=== PATIENT | female | born 1960 | race Caucasian/White ===

== ENCOUNTER 2016-10-15 06:43 | Inpatient (IN) | payer OTHER ==
[~2016-10-15] VITALS: Ht 170.2 cm; Wt 87.0 kg
[~2016-10-15 06:43] MED LIST: AMBIEN CR12.5 MG PO; AMLACTIN140 GM TP; BRILINTA60 MG PO; CALCIUM 500 +1 EAC5 PO; CALCIUM 600 +1 EA12 PO; COLACE100 MG PO; CYANOCOBALAM1000 MCG PO; CYMBALTA60 MG PO; DICLOFENAC SODI75 MG PO; FISH OIL 1,2001 EAC4 PO; FLEXERIL10 MG PO; FOLIC ACID1 MG PO; HYDROXYZINE HCL25 MG PO; IRON325 M1 PO; IRON325 MG PO; ISOSORBIDE MONO30 MG PO; KLONOPIN1 MG PO; LEXAPRO20 MG PO; LIPITOR40 MG PO; LO-DOSE ASPIRIN81 M1 PO; LO-DOSE ASPIRIN81 M2 PO; LYRICA50 MG PO; MELATONIN10 M1 PO; METHOTREXATE2.5 MG PO; METOPROLOL SUCC50 MG PO; MORPHINE SULFAT15 M1 PO; MORPHINE SULFAT15 MG PO; NAPROXEN500 MG PO; NASONEX17 GM NS; NITROSTAT0.4 MG SL; OXYCODONE HCL10 MG PO; OXYCODONE HCL5 MG PO; OXYCONTIN40 MG PO; PRILOSEC OTC20 MG PO; PROAIR RESPICL90 MCG IH; REQUIP2 MG PO; REQUIP3 MG PO; REQUIP4 MG PO; ROBAXIN750 MG PO; SINUS RELIEF15 ML BOTH NARES; TIZANIDINE HCL4 M1 PO; TYLENOL EXTRA500 MG PO; VOLTAREN 1% GE100 GM TP; WELLBUTRIN SR150 MG PO; XANAX2 MG PO; XARELTO10 MG PO; XYZAL5 MG PO; ZANTAC150 MG PO
[2016-10-15 07:44] VITALS: BP 114/67
[2016-10-15 16:23] VITALS: BP 149/101
[2016-10-15 19:46] VITALS: BP 157/91
[2016-10-15 23:36] VITALS: BP 124/73
[2016-10-16 04:42] VITALS: BP 128/62
[2016-10-16 05:57] LABS: ANION GAP 6 MEQ/L (2-14); CHLORIDE 102 MEQ/L (99-109); GFR ESTIMATE (CALCULATED) > 59 mL/min/; GLUCOSE 123 mg/dL (70-99); POTASSIUM 4.4 MEQ/L (3.7-5.4); SAMPLE HEMOLYSIS CHECK 0; SAMPLE ICTERIC CHECK 0; SAMPLE LIPEMIA CHECK 0; SODIUM 139 MEQ/L (136-147); UREA NITROGEN (BUN) 6 mg/dL (9-23)
[2016-10-16 06:29] LABS: HEMATOCRIT 32.1 % (36.0-46.0); MCV 97.6 FL (83-99)
[2016-10-16 10:27] VITALS: BP 149/72
[2016-10-16 16:38] VITALS: BP 140/85
[2016-10-17 00:01] VITALS: BP 123/71
[2016-10-17 05:42] LABS: HEMATOCRIT 31.3 % (36.0-46.0); MCV 95.1 FL (83-99)
[2016-10-17 08:22] VITALS: BP 139/65
[2016-10-17] MEDS ORDERED: BENADRYL25 MG PO (10:13)
[2016-10-17] MEDS ORDERED: XARELTO10 MG PO (10:17)
[2016-10-17] MEDS ORDERED: OXYCODONE HCL5 MG PO (10:17)
== END 2016-10-17 17:11 | DRG 470 ==
LOC: 3EAST 06:43 → 2SOUTH 06:43 → 3EAST 15:31
PROVIDERS: Orthopaedic Surgery
DX: M17.11 Unilateral primary osteoarthritis, right knee (principal); L40.50 Arthropathic psoriasis, unspecified; G89.29 Other chronic pain; I10 Essential (primary) hypertension; I25.10 Atherosclerotic heart disease of native coronary artery without angina pectoris; E78.5 Hyperlipidemia, unspecified; F32.9 Major depressive disorder, single episode, unspecified; F17.210 Nicotine dependence, cigarettes, uncomplicated; Z96.652 Presence of left artificial knee joint; I25.2 Old myocardial infarction; Z95.5 Presence of coronary angioplasty implant and graft; Z88.7 Allergy status to serum and vaccine; Z79.82 Long term (current) use of aspirin
CPT/HCPCS: 80048; 85014; 85018; C1713; C1776; J0131; J0690; J1170; J1885; J2250; J2795; J3010; J7050; J7120; L1820; S0020